=== PATIENT | male | born 1995 | race Hispanic/Latino ===

== ENCOUNTER 2017-08-08 16:56 | Emergency (ER) | payer SELFPAY ==
[2017-08-08] MEDS ORDERED: Adacel (T-DAP) 0.5 ML VIAL ONE (17:06)
--- NOTE | 2017-08-08 17:48 | RAD ---
RIGHT LITTLE FINGER: 08/08/17 HISTORY: Injury to finger. There is soft tissue injury and fracture of the tuft of the distal phalanx of the little finger. IMPRESSION: Soft tissue injury and fracture of the tuft of the distal phalanx. POS: [facility]
[2017-08-08] MEDS ORDERED: Cephalexin 500 MG CAP ONE (19:23)
== END 2017-08-08 19:19 | disposition home or self-care (01) ==
LOC: BURERS 16:56
DX: S61.316A Laceration without foreign body of right little finger with damage to nail, initial encounter (principal); F17.220 Nicotine dependence, chewing tobacco, uncomplicated; W31.89XA Contact with other specified machinery, initial encounter; Y92.69 Other specified industrial and construction area as the place of occurrence of the external cause; Y99.0 Civilian activity done for income or pay
CPT/HCPCS: 11760; 90471; 90715; J2001